=== PATIENT | female | born 1970 | race African-American/Black ===

== ENCOUNTER 2017-05-28 21:05 | Emergency (ER) | payer OTHER ==
[~2017-05-28] VITALS: Ht 160 cm; Wt 99.8 kg
[2017-05-28] MEDS ORDERED: GAVISCON LIQUI355 ML PO (21:20)
[2017-05-28] MEDS ORDERED: NORCO 5-325 TA1 EACH PO (21:21)
[2017-05-28] MEDS ORDERED: [UNRECOGNIZED DRUG - REMARK] (21:35)
[2017-05-28] MEDS ORDERED: COREG25 MG PO (21:40)
[2017-05-28] MEDS ORDERED: OXYCONTIN20 M1 PO (21:42)
== END 2017-05-28 22:05 | disposition home or self-care (01) ==
LOC: ER 21:05
DX: G89.29 Other chronic pain (principal); M25.562 Pain in left knee; F17.210 Nicotine dependence, cigarettes, uncomplicated; Z88.5 Allergy status to narcotic agent